=== PATIENT | female | born 1980 | race Caucasian/White ===

== ENCOUNTER 2021-03-12 07:51 | Emergency (ER) | payer OTHER, SELFPAY ==
--- NOTE | 2021-03-12 08:03 | XR_ITS ---
WS: [id number] XR chest 1V portable [id number] REASON FOR EXAM: chest pain FINDINGS: The heart and mediastinum are within normal limits. Calcified granulomatous disease bilaterally. No active pulmonary parenchymal pleural disease. Bony thorax is intact. XR/XR chest 1V portable [id number] IMPRESSION: No acute chest abnormality. The chest is stable in appearance compared to 2008.
--- NOTE | 2021-03-12 08:03 | ECG_ITS ---
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 Measurements Intervals [place] Rate: 71 P: 61 AR: 138 QRS: 63 QRSD: 77 T: 12 QT: 385 QTc: 419 Interpretive Statements SINUS RHYTHM LEFT ATRIAL ENLARGEMENT [-0.15mV P WAVE IN V1/V2] No previous ECG available for comparison Electronically Signed On 03-18-2021 0:34:31 CDT by Kiesha Singh M.D. [email or web address].C-Note/store/NU/[id number] f
[2021-03-12 08:12] VITALS: BP 158/88; PULSE 77; RESP 18; TEMP 36.7; O2SAT 98; BMI 32.4
[2021-03-12 08:15] VITALS: BP 115/79; PULSE 69; O2SAT 98
[2021-03-12 08:26] VITALS: BP 154/95; PULSE 76; RESP 18; O2SAT 100
--- NOTE | 2021-03-12 08:41 | ED_ITS ---
HPI - Chest Pain General: Chief Complaint: Chest Pain Stated Complaint: chest pain Time Seen by Provider: 03/12/21 08:11 Source: patient Mode of arrival: ambulatory Limitations: no limitations History of Present Illness: HPI narrative: Patient is a 41-year-old female with no PMH here for complaints of chest pain that began around 2:30 AM and awoke her from sleep. She states pain is located substernally and radiated into both arms and into her jaw. She describes the pain as pressure. She states she got up and walked upstairs to use the restroom and felt extremely winded which she said was abnormal for her. She does report multiple wasp stings earlier that morning but did not feel like she had any allergic reaction to them. She has no significant cardiac or pulmonary history. She currently still complains of pain and dyspnea. No upper abdominal pain. Denies palpitations, diaphoresis, orthopnea, or PND. She does complain of some lower extremity swelling but states she is the heaviest weight she has been in a while. She has had extensive left knee surgery and states her left leg is usually slightly more swollen than her right. MD complaint: chest pain Onset (ago): hour(s) Timing of current episode: constant Onset: other (during sleep) Pain location: substernal Pain radiation: right arm, left arm and jaw/teeth Quality: other (pressure) Relieving factors: nothing Exacerbating factors: nothing Associated symptoms: Reports dyspnea; Deny abdominal pain, fever(s), nausea, palpitations, syncope or vomiting Treatment prior to arrival: none Related Data: On Oral Contraceptives: No Review of Systems Const: Denies: fever(s), chills, body aches, fatigue or malaise Eyes: Denies: change in vision or blurry vision ENMT: Denies: odynophagia Card: Reports: chest pain, swelling of feet/ankles and dyspnea on exertion; Denies: palpitations, irregular heart rhythm, lightheadedness, syncope, pre- syncope, orthopnea, leg pain with exertion or acrocyanosis Resp: Reports: dyspnea; Denies: productive cough, non-productive cough, pain on inspiration, hemoptysis or chest congestion GI: Denies: abdominal pain, nausea, vomiting or diarrhea : Denies: flank pain or dysuria Musc: Denies: neck pain or back pain Skin/Breast: Denies: rash Neuro: Denies: headache(s) [facility] ED Female Reproductive History: Date of last menstrual period: 02/20/21 Physical Exam Const: COMMON NORMALS: no acute distress, patient oriented x3, no limitations and alert GENERAL APPEARANCE: cooperative NUTRITIONAL APPEARANCE: overweight ORIENTATION/CONSCIOUSNESS: Yes awake, Yes oriented to person, Yes oriented to place and Yes oriented to time HENMT: COMMON NORMALS: normocephalic and atraumatic HEAD & SCALP: normocephalic and atraumatic Resp: COMMON NORMALS: normal respiratory effort and clear to auscultation bilaterally AUSCULTATION: clear to auscultation bilaterally Cardio: COMMON NORMALS: regular rate and regular rhythm RATE: regular rate RHYTHM: regular rhythm GI: COMMON NORMALS: Normal to inspection, nondistended, normoactive bowel sounds present, Soft to palpation, non-tender, No hepatosplenomegaly present and no masses PALPATION: Yes Soft to palpation and Yes No hepatosplenomegaly present Extremity: COMMON NORMALS: full ROM, capillary refill normal and no calf tenderness NARRATIVE EXTREMITY EXAM: mild bilateral non-pitting edema Neuro: COMMON NORMALS: patient oriented x3 SENSORIUM/ORIENTATION: Yes alert, Yes oriented to person, Yes oriented to place and Yes oriented to time Skin: COMMON NORMALS: no rashes or lesions noted GENERAL SKIN EXAM: no rashes or lesions noted Course ED course: Chest pain has improved after one dose of nitro. She states she is sensitive to a lot of medications and they give her debilitating migraines. She tells me she feels like she has a headache coming on. She is requesting medications for this. HEART score is 2 maximum. Setting her up with outpatient stress test. Vital Signs: Vital signs: Vital Signs Temperature 98.1 F 03/12/21 08:12 Pulse Rate 70 03/12/21 11:07 Respiratory Rate 12 03/12/21 11:07 Blood Pressure 109/74 03/12/21 11:07 Pulse Oximetry 100 03/12/21 11:07 MDM - Chest Pain MDM Narrative: Medical decision making narrative: Patient's chest pain improved after one dose of nitro. This subsequently caused patient to have a migraine that was then treated. Her initial troponin is 6 with a delta of 0. D-dimer and BNP normal. Her EKG shows some inverted T waves in lead III but is otherwise normal. She has no previous EKGs for comparison. She has no past medical history. Heart score would be at 2 at maximum. Will have CM set her up with an outpatient stress test. Return to ED precautions given. Case discussed with Dr. Zhang who agrees with evaluation/plan. Lab Data: Labs: Lab Results 03/12/21 03/12/21 03/12/21 Range/Units 09:01 09:01 09:01 WBC 5.2 (4.0-10.0) 10^3/ uL RBC 4.82 (4.1-5.3) 10^6/u L Hgb 13.9 (11.5-15.3) g/dL Hct 42.9 (37.0-47.0) % MCV 89.0 (81-99) fL MCH 28.8 (28.0-34.0) pg MCHC 32.4 (30.0-36.0) g/dL RDW 14.4 (12.1-15.1) % Plt Count 227 (130-400) 10^3/c mm MPV 10.9 H (7.4-10.4) fL Neut % (Auto) 66.4 % Lymph % (Auto) 14.6 % [place] % (Auto) 13.6 % Eos % (Auto) 3.6 % Baso % (Auto) 1.2 % Neut # (Auto) 3.46 (1.8-7.7) 10^3/u L Lymph # (Auto) 0.8 (0.8-4.8) 10^3/u L [place] # (Auto) 0.7 (0.2-0.9) 10^3/u L Eos # (Auto) 0.2 (0.0-0.8) 10^3/u L Baso # (Auto) 0.1 (0.0-0.1) 10^3/u L Nucleated RBC % (a uto) 0 % Nucleated RBCs # 0.0 /100WBC D-Dimer (0-0.59) ug/mIFE U Sodium 139 (136-145) mmol/L Potassium 4.4 (3.5-5.1) mmol/L Chloride 103 (98-107) mmol/L Carbon Dioxide 24 (22-29) mmol/L Anion Gap 16.4 (5-19) BUN 11 (6-20) mg/dL Creatinine 0.6 (0.5-0.9) mg/dL GFR Calculation 110.7 (90-130) mL/min Glucose 102 (65-115) mg/dL Calculated Osmolal ity 288 (285-295) mOsm/k g Calcium 9.0 (8.5-10.5) mg/dL Total Bilirubin 0.5 (0.15-1.2) mg/dL AST 17 (0-32) U/L ALT 20 (0-33) U/L Alkaline Phosphata se 87 (35-105) IU/L Troponin T Baselin e 6 (0-10) ng/L Troponin T 120 Min [place] (0-10) ng/L Delta Troponin T (0-10) ABS# NT-Pro-B Natriuret Pep 40 (0-125) pg/mL Total Protein 7.2 (6.6-8.7) g/dL Albumin 4.7 (3.5-5.2) g/dL Globulin 2.5 (1.3-4.6) g/dL HCG, Qual (Negative) 03/12/21 03/12/21 03/12/21 Range/Units 09:01 09:01 10:12 WBC (4.0-10.0) 10^3/ uL RBC (4.1-5.3) 10^6/u L Hgb (11.5-15.3) g/dL Hct (37.0-47.0) % MCV (81-99) fL MCH (28.0-34.0) pg MCHC (30.0-36.0) g/dL RDW (12.1-15.1) % Plt Count (130-400) 10^3/c mm MPV (7.4-10.4) fL Neut % (Auto) % Lymph % (Auto) % [place] % (Auto) % Eos % (Auto) % Baso % (Auto) % Neut # (Auto) (1.8-7.7) 10^3/u L Lymph # (Auto) (0.8-4.8) 10^3/u L [place] # (Auto) (0.2-0.9) 10^3/u L Eos # (Auto) (0.0-0.8) 10^3/u L Baso # (Auto) (0.0-0.1) 10^3/u L Nucleated RBC % (a uto) % Nucleated RBCs # /100WBC D-Dimer 0.50 (0-0.59) ug/mIFE U Sodium (136-145) mmol/L Potassium (3.5-5.1) mmol/L Chloride (98-107) mmol/L Carbon Dioxide (22-29) mmol/L Anion Gap (5-19) BUN (6-20) mg/dL Creatinine (0.5-0.9) mg/dL GFR Calculation (90-130) mL/min Glucose (65-115) mg/dL Calculated Osmolal ity (285-295) mOsm/k g Calcium (8.5-10.5) mg/dL Total Bilirubin (0.15-1.2) mg/dL AST (0-32) U/L ALT (0-33) U/L Alkaline Phosphata se (35-105) IU/L Troponin T Baselin e (0-10) ng/L Troponin T 120 Min [place] 6.00 (0-10) ng/L Delta Troponin T 0 (0-10) ABS# NT-Pro-B Natriuret Pep (0-125) pg/mL Total Protein (6.6-8.7) g/dL Albumin (3.5-5.2) g/dL Globulin (1.3-4.6) g/dL HCG, Qual Negative (Negative) Imaging Data^: CXR: Radiologist's impression: [address] [id number] ReportSigned Patient: Lety Garg #: [id number]: 1980Acct#:[id number] /Sex: 41 / FADM Date: 03/12/21Loc: ERRoom/Bed:Attending Dr: Ordering Provider/Ordering MD: Joy Burrell Date of Service: 03/12/21 Procedure(s): XR chest 1V portable [id number] Accession Number(s): [id number] Report Number: [id number] WS: [id number] XR chest 1V portable [id number] REASON FOR EXAM: chest pain FINDINGS: The heart and mediastinum are within normal limits. Calcified granulomatous disease bilaterally. No active pulmonary parenchymal pleural disease. Bony thorax is intact. XR/XR chest 1V portable [id number] IMPRESSION: No acute chest abnormality. The chest is stable in appearance compared to 02/02/2009. Dictated By:Tyler Spencer Jr MDSigned By:Tyler Spencer Jr MDSigned Date/Time:03/12/21913DD/ 2 EKG Data^: EKG 1: EKG interpretation date: 03/12/21 EKG interpretation time: 08:18 Interpretation: Sinus rhythm Rate 71 Inverted T waves lead III No previous EKGs for comparison EKG 2: EKG interpretation date: 03/12/21 EKG interpretation time: 10:51 Interpretation: Sinus rhythm Rate 61 Inverted T waves lead III No acute changes from EKG performed earlier on same visit Discharge Plan Discharge Patient Disposition: Home Clinical Impression: Atypical chest pain Migraine headache Qualifiers: Migraine type: without aura Status migrainosus presence: without status migrainosus Intractability: not intractable Qualified Code(s): G43.009 - Migraine without aura, not intractable, without status migrainosus Condition: Stable Prescriptions: No Action No Known Home Medications RF: 0 Discharge Orders: Discharge ED (Routine); Ordered 03/12/21 Ordered By: Joy Burrell Referrals: Yusra Negrete FNP [Primary Care Provider] - Patient Instructions: Chest Pain - Noncardiac, Chest Pain (ED) Activity Restrictions/Additional Instructions: As we discussed case management should contact you to set you up with your outpatient stress test. These results will be sent to your primary care provider Yusra Negrete. You need to return to the emergency department for worsening or severe chest pain, shortness of breath, difficulty breathing, passing out episodes, fevers, or any other concerns you may have. Coding Level of Care Code ED C.O.D. Biller for Chg Fwd Exam Detailed
[2021-03-12 09:15] LABS: Basophils # 0.1 10^3/uL (0.0-0.1); Basophils % 1.2 %; Eosinophils # 0.2 10^3/uL (0.0-0.8); Eosinophils % 3.6 %; Hematocrit 42.9 % (37.0-47.0); Hemoglobin 13.9 g/dL (11.5-15.3); Lymphocytes # 0.8 10^3/uL (0.8-4.8); Lymphocytes % 14.6 %; Mean Corpuscular HGB Conc 32.4 g/dL (30.0-36.0); Mean Corpuscular Hemoglobin 28.8 pg (28.0-34.0); Mean Platelet Volume 10.9 fL (7.4-10.4); Monocytes # 0.7 10^3/uL (0.2-0.9); Monocytes % 13.6 %; Neutrophils # 3.46 10^3/uL (1.8-7.7); Neutrophils % 66.4 %; Nucleated Red Blood Cells % 0 %; Platelet Count 227 10^3/cmm (130-400); Red Blood Count 4.82 10^6/uL (4.1-5.3); Red Cell Distribution Width 14.4 % (12.1-15.1); White Blood Count 5.2 10^3/uL (4.0-10.0)
[2021-03-12] MEDS: nitroglycerin 0.4 mg sublingual Tablet SUBLINGUAL (09:26)
[2021-03-12 09:31] VITALS: BP 142/121; PULSE 77; O2SAT 97
[2021-03-12 09:35] LABS: HCG, Serum Qual Negative (Negative)
--- NOTE | 2021-03-12 09:36 | PC.NURSE ---
Pt states pain level has decreased from 7 to 3 on a scale of 1-10 after 0.4 sublingual nitro.
[2021-03-12 09:42] LABS: Troponin(5th) Baseline 6 ng/L (0-10)
[2021-03-12 09:49] LABS: Alanine Aminotransferase 20 U/L (0-33); Albumin Level 4.7 g/dL (3.5-5.2); Alkaline Phosphatase 87 IU/L (35-105); Anion Gap 16.4 (5-19); Aspartate Amino Transferase 17 U/L (0-32); Blood Urea Nitrogen 11 mg/dL (6-20); Carbon Dioxide 24 mmol/L (22-29); Chloride 103 mmol/L (98-107); Globulin 2.5 g/dL (1.3-4.6); Glomerular Filtration Rate 110.7 mL/min (90-130); Glucose 102 mg/dL (65-115); NT Pro B Type Natriuretic Pept 40 pg/mL (0-125); Osmolality Calculated 288 mOsm/kg (285-295); Potassium 4.4 mmol/L (3.5-5.1); Sodium 139 mmol/L (136-145); Total Bilirubin 0.5 mg/dL (0.15-1.2); Total Protein 7.2 g/dL (6.6-8.7)
--- NOTE | 2021-03-12 10:03 | ECG_ITS ---
[facility] ED Test Date: 2021-03-12 Pat Name: Lety Garg Department: Room: Gender: Female Er Rn: : 1980 Requested By: Joy Burrell Order Number: [id number] Nirmal MD: Kiesha Singh M.D. Measurements Intervals [place] Rate: 61 P: 30 ID: 120 QRS: 51 QRSD: 73 T: 4 QT: 420 QTc: 426 Interpretive Statements SINUS RHYTHM POSSIBLE LEFT ATRIAL ENLARGEMENT [-0.1mV P WAVE IN V1/V2] No previous ECG available for comparison Electronically Signed On 03-18-2021 0:43:24 CDT by Kiesha Singh M.D. [email or web address] [email or web address] Gardenuniversity hospitals samaritan medical centerContentful/store/OM/[id number]
[2021-03-12] MEDS: dexamethasone 10 mg/mL INJ 8 MG IV (10:23)
[2021-03-12] MEDS: ketorolac 60 mg/2 mL INJ 30 MG IVP (10:23)
[2021-03-12] MEDS: diphenhydrAMINE 50 mg/mL SDV 1mL IVP (10:24)
[2021-03-12 10:37] LABS: Troponin 5 2HR Delta 0 ABS# (0-10)
[2021-03-12 11:07] VITALS: BP 109/74; PULSE 70; RESP 12; O2SAT 100
--- NOTE | 2021-03-12 15:39 | DCPLANNER ---
manager clinical informatics was asked to schedule an outpatient stress test for patient. manager clinical informatics faxed signed order for stress test to centralized scheduling. Centralized scheduling will call patient with appointment information.
--- NOTE | 2021-03-19 13:58 | DCPLANNER ---
Patient has a follow up appointment scheduled for Thursday, March 25, 2021 at 12:15 for an out patient stress test. Centralized scheduling will call patient with appointment information.
--- NOTE | 2021-03-27 07:56 | DCPLANNER ---
Patient had a stress test scheduled for 03.25.21 - this was cancelled.
== END 2021-03-12 11:06 | disposition home or self-care (01) ==
PROVIDERS: Emergency Provider Physician Assistant; PCP Nurse Practitioner Family
DX: R07.89 Other chest pain (principal); G43.009 Migraine without aura, not intractable, without status migrainosus
CPT/HCPCS: 36415; 71045; 80053; 83880; 84484; 84703; 85025; 85378; 93005; 96374; 96375; 99284; J1100; J1200; J1885

== ENCOUNTER 2022-01-25 04:19 | Emergency (ER) | payer OTHER, SELFPAY ==
[2022-01-25 04:26] VITALS: BP 126/101; PULSE 80; RESP 15; TEMP 36.7; O2SAT 100; BMI 32.4
--- NOTE | 2022-01-25 04:32 | CTR_ITS ---
PROCEDURE INFORMATION: Exam: CT Cervical Spine Without Contrast Exam date and time: 01/25/2022 4:45 AM Age: 42 years old Clinical indication: Prior surgery; Surgery type: Cervical fusion; Patient HX: C/O neck pain with worsening tingling and weakness to RT upper extremity. ; Additional info: Neck pain tingling right arm TECHNIQUE: Imaging protocol: Computed tomography images of the cervical spine without contrast. Radiation optimization: All CT scans at this facility use at least one of these dose optimization techniques: automated exposure control; mA and/or kV adjustment per patient size (includes targeted exams where dose is matched to clinical indication); or iterative reconstruction. COMPARISON: CR XR chest 1V portable [id number] 03/12/2021 8:31 AM RADIATION DOSE METRICS: Total DLP (mGy-cm): 482.54 FINDINGS: Bones/joints: No spine curvature seen. There is straightening of the normal cervical lordosis, without listhesis. The patient is status post C6-C7 anterior fusion. No evidence of hardware related complication. Discs/Spinal canal/Neural foramina: There is degenerative changes of the lower cervical spine, involving mainly C5-C6, manifested by intervertebral disc space narrowing, endplate osteophytes and facet joint arthrosis, resulting in mild bilateral neural foraminal narrowing. No significant disc protrusion. No severe spinal canal stenosis. Lungs: Lung apices are normal. Soft tissues: Unremarkable. CT/CT cervical spin wo con* [id number] IMPRESSION: 1. No acute findings. 2. Status post C6-C7 anterior fusion, without evidence of hardware related complication. 3. Mild degenerative changes the lower cervical spine, involving mainly C5-C6.
--- NOTE | 2022-01-25 04:33 | ED_ITS ---
HPI - Neck Pain/Injury General: Chief Complaint: Neck Pain/Injury Stated Complaint: neck pain Time Seen by Provider: 01/25/22 04:40 Source: patient Mode of arrival: ambulatory Limitations: no limitations History of Present Illness: 42-year-old female who states that she had a neck surgery done 20 years ago. States that 2 weeks ago she felt a pop in her neck and has been having increasing neck pain along with some tingling and weakness to her right arm. States she is concerned she may have done something to the hardware. States her pain currently is a 4 out of 10 denies any worsening improving factors. She denies any fevers. She states that she is actually spoken to her neurosurgeon that done her previous surgery and has an appoint with him on this Thursday. Associated symptoms: Denies nausea Review of Systems Const: Denies: fever(s), chills, body aches or change in appetite Eyes: Denies: blurry vision or eye discomfort ENMT: Denies: throat pain or dental pain Card: Denies: chest pain Resp: Denies: dyspnea GI: Denies: abdominal pain, nausea, vomiting or diarrhea : Denies: dysuria Musc: Reports: neck pain Skin/Breast: Denies: rash Neuro: Reports: numbness in extremities Psych: Denies: depression Yoan/Lymph: Denies: easy bruising All/Imm: Denies: urticaria PFSH ED 2 PFSH: Medical History (Updated 01/25/22 @ 05:32 by Med Quintana MD) No pertinent past medical history Social History (Updated 01/25/22 @ 04:34 by Med Quintana MD) Substance/Drug Use: never Female Reproductive History: Date of last menstrual period: 02/20/21 Physical Exam Const: COMMON NORMALS: no acute distress, patient oriented x3 and healthy appearing HENMT: COMMON NORMALS: normocephalic and atraumatic HEAD & SCALP: normocephalic and atraumatic Eye: COMMON NORMALS: Equal, round and reactive pupils present and EOMs intact bilaterally PUPIL: Yes Equal, round and reactive pupils present Neck/C-Spine: COMMON NORMALS: full ROM OTHER: Tenderness along neck Chest: COMMONS NORMALS: normal inspection of the chest and normal palpation of entire chest wall Resp: COMMON NORMALS: normal respiratory effort, No retractions, No use of accessory muscles and clear to auscultation bilaterally AUSCULTATION: clear to auscultation bilaterally Cardio: COMMON NORMALS: regular rate, regular rhythm and No murmurs present (Cardio) RATE: regular rate RHYTHM: regular rhythm GI: COMMON NORMALS: Normal to inspection, nondistended, normoactive bowel so unds present, Soft to palpation, non-tender and no masses PALPATION: Yes Soft to palpation Extremity: COMMON NORMALS: normal to inspection and full ROM Neuro: COMMON NORMALS: patient oriented x3, moves all extremities and no focal motor deficits OTHER: Slight decreased transportation superintendent strength on the right Psych: COMMON NORMALS: mental status grossly normal, Normal thought process present and cooperative THOUGHT PROCESS: Normal thought process present Skin: COMMON NORMALS: no rashes or lesions noted and no wounds GENERAL SKIN EXAM: no rashes or lesions noted Course Vital Signs: Vital signs: Vital Signs Temperature 98.1 F 01/25/22 04:26 Pulse Rate 80 01/25/22 04:26 Respiratory Rate 15 01/25/22 04:26 Blood Pressure 126/101 01/25/22 04:26 Pulse Oximetry 100 01/25/22 04:26 MDM - Neck Pain/Injury Medical Decision Making Patient presents with neck pain along with some cervical radiculopathy she has no signs of epidural abscess no fever no drug use. She has follow-up with her neurosurgeon on Thursday CT scan here showed no acute findings she is stable for discharge she is to follow-up as scheduled return if worsening she understands agrees to plan. Lab Data Radiology Impressions Cervical Spine CT 01/25/22 04:32 IMPRESSION: 1. No acute findings. 2. Status post C6-C7 anterior fusion, without evidence of hardware related complication. 3. Mild degenerative changes the lower cervical spine, involving mainly C5-C6. Discharge Plan Discharge Patient Disposition: Home Clinical Impression: Cervical radiculopathy, Neck pain Prescriptions: New hydrocodone-acetaminophen 5-325 mg tablet 1 tab PO Q6H PRN (Reason: pain) Qty: 14 0RF Naprosyn 500 mg tablet 500 mg PO BID PRN (Reason: pain) Qty: 20 0RF Discharge Orders: Discharge ED (Routine); Ordered 01/25/22 Ordered By: Med Quintana Referrals: Yusra Negrete FNP [Primary Care Provider] - Discharge Diet: Advance as tolerated Discharge Activity: Resume usual activity Patient Instructions: Cervical Radiculopathy (ED), Acute Neck Pain (ED), Opioid Safety Coding Level of Care Code ED Social Worker Palliative Care for Angel Luisg Fwd Exam Comprehensive
[2022-01-25] MEDS: dexamethasone 10 mg/mL INJ IM (04:57)
[2022-01-25] MEDS: ketorolac 60 mg/2 mL INJ IM (04:57)
[2022-01-25 05:54] VITALS: BP 119/89; PULSE 69; RESP 16; O2SAT 100
== END 2022-01-25 05:49 | disposition home or self-care (01) ==
PROVIDERS: Emergency Provider Emergency Medicine; PCP Nurse Practitioner Family
DX: M54.12 Radiculopathy, cervical region (principal); Z98.1 Arthrodesis status
CPT/HCPCS: 72125; 96372; 99283; J1100; J1885

== ENCOUNTER 2022-09-26 15:00 | Outpatient (CLI) | payer OTHER, SELFPAY ==
--- NOTE | 2022-09-26 15:20 | MM_ITS ---
WS: [id number] BILATERAL 3D TOMOSYNTHESIS DIGITAL SCREENING MAMMOGRAM WITH CAD CLINICAL INFORMATION: SCREENING HISTORY: Screening mammogram. No current complaints. BASELINE TECHNIQUE: Bilateral CC and MLO. FINDINGS: The breast are composed of extremely dense tissue, which can limit the detection of small underlying mass lesions. No suspicious focal mass, asymmetry, calcifications, or architectural distortion. No ev idence of malignancy. A few tiny punctate calcifications. MM/[place] [id number] IMPRESSION: BI-RADS: 2-Benign FOLLOW UP: 1 Year Follow-up Recommend return to annual screening mammography.
== END 2022-09-26 15:01 | disposition home or self-care (01) ==
PROVIDERS: PCP Nurse Practitioner Family; Visit Provider Advanced Practice Midwife
DX: Z12.31 Encounter for screening mammogram for malignant neoplasm of breast (principal)
CPT/HCPCS: 77063; 77067